=== PATIENT | female | born 1970 | race Caucasian/White ===

== ENCOUNTER 2018-07-30 07:38 | Outpatient (CLI) | payer OTHER ==
[~2018-07-30 07:38] MED LIST: CATAFLAM50 MG PO
== END 2018-07-30 09:53 | disposition home or self-care (01) ==
LOC: LAB 07:38
DX: N95.0 Postmenopausal bleeding (principal)

== ENCOUNTER → 2018-10-07 07:00 | Outpatient (CLI) | payer OTHER | END | disposition home or self-care (01) | LOC: LAB 07:00 | DX: E03.8 Other specified hypothyroidism (principal); E11.65 Type 2 diabetes mellitus with hyperglycemia; E78.00 Pure hypercholesterolemia, unspecified; D69.6 Thrombocytopenia, unspecified ==

== ENCOUNTER 2018-11-18 10:19 | Emergency (ER) | payer OTHER ==
[~2018-11-18] VITALS: Ht 160 cm; Wt 61.2 kg
== END 2018-11-18 12:49 | disposition home or self-care (01) ==
LOC: ER 10:19
DX: B34.9 Viral infection, unspecified (principal); R51 Headache

== ENCOUNTER 2019-01-08 07:16 | Outpatient (CLI) | payer OTHER | END 2019-01-08 08:10 | disposition home or self-care (01) | LOC: LAB 07:16 | DX: E03.8 Other specified hypothyroidism (principal); E11.65 Type 2 diabetes mellitus with hyperglycemia; D68.8 Other specified coagulation defects; E11.59 Type 2 diabetes mellitus with other circulatory complications; E55.9 Vitamin D deficiency, unspecified ==